=== PATIENT | male | born 1955 | race Asian ===

== ENCOUNTER 2018-05-24 07:18 | Day surgery (SDC) | payer OTHER ==
[~2018-05-24 07:18] MED LIST: DESFLURANE 15 MIN
[2018-05-24] MEDS ORDERED: CEFAZOLIN 2 GM/50 ML (PMX) 50 ML IVPB (09:00)
[2018-05-24] MEDS ORDERED: SOD CHLORIDE 0.9% 1,000 ML IV (09:00)
[2018-05-24] MEDS ORDERED: ROCURONIUM 50 MG INJ (10:40)
[2018-05-24] MEDS ORDERED: CEFAZOLIN 1 GM INJ (10:40)
[2018-05-24] MEDS ORDERED: PROPOFOL 20 ML (10:40)
[2018-05-24] MEDS ORDERED: NEOSTIGMINE 3 MG/3 ML SYRINGE (10:40)
[2018-05-24] MEDS ORDERED: GLYCOPYRROLATE 0.4 MG INJ (10:40)
[2018-05-24] MEDS ORDERED: FENTAnyl 50 MCG/ML VIAL (10:42)
[2018-05-24] MEDS ORDERED: MIDAZOLAM 1 MG/ML 2 ML INJ (10:42)
[2018-05-24] MEDS ORDERED: ONDANSETRON 4 MG INJ (10:42)
[2018-05-24] MEDS ORDERED: KETOROLAC 30 MG INJ (10:53)
[2018-05-24] MEDS ORDERED: FENTAnyl 50 MCG/ML VIAL IV ×3 (11:00)
[2018-05-24] MEDS ORDERED: ONDANSETRON 4 MG INJ IV (11:00)
[2018-05-24] MEDS ORDERED: hydrALAzine 20 MG INJ IV (11:00)
[2018-05-24] MEDS ORDERED: ALBUTEROL 0.083% (NEB) 2.5 MG/3 ML AMP HHN (11:00)
[2018-05-24] MEDS ORDERED: MEPERIDINE 25 MG INJ IV (11:00)
[2018-05-24] MEDS ORDERED: TRIMETHOBENZAMIDE 100 MG/ML VIAL IM (11:00)
[2018-05-24] MEDS ORDERED: HYDROmorphONE 1 MG/5 ML IV SYRINGE IV ×3 (11:00)
[2018-05-24] MEDS ORDERED: LABETALOL HCL 20MG INJ IV (11:00)
[2018-05-24] MEDS ORDERED: DIPHENHYDRAMINE 50 MG INJ IV (11:00)
[2018-05-24] MEDS ORDERED: MIDAZOLAM 1 MG/ML 2 ML INJ IV (11:00)
[2018-05-24] MEDS ORDERED: IPRATROPIUM (NEB) 0.5 MG/2.5 ML AMP HHN (11:00)
[2018-05-24] MEDS ORDERED: EPHEDrine SULFATE 50 MG/5 ML SYG IV (11:00)
[2018-05-24] MEDS ORDERED: OXYCODONE/ACETAMINOPHEN (5/325) TAB PO ×2 (11:00)
[2018-05-24] MEDS ORDERED: HYDROCODONE/APAP (5/325) TAB PO (11:30)
[2018-05-24] MEDS: BUPIVACAINE 0.25% (MPF) 30 ML INJ (13:44)
== END 2018-05-24 13:09 | disposition home or self-care (01) ==
LOC: SDS 07:18
DX: D21.3 Benign neoplasm of connective and other soft tissue of thorax (principal); I10 Essential (primary) hypertension; E78.5 Hyperlipidemia, unspecified; N40.0 Benign prostatic hyperplasia without lower urinary tract symptoms
CPT/HCPCS: 14301; 88307